=== PATIENT | male | born 1960 | race Caucasian/White ===

== ENCOUNTER 2024-06-30 06:16 | Day surgery (SDC) | payer OTHER, SELFPAY ==
[2024-06-30 08:05] LABS: Glucose - Point of Care 135 mg/dl (70-99)
== END 2024-06-30 10:14 | disposition home or self-care (01) ==
LOC: GI 06:16
PROVIDERS: ATTENDING PHYSICIAN Specialist
DX: Z12.11 Encounter for screening for malignant neoplasm of colon (principal); Z86.0101 Personal history of adenomatous and serrated colon polyps; K63.5 Polyp of colon
CPT/HCPCS: 45385; 88305; 82962